=== PATIENT | female | born 1965 | race Caucasian/White ===

== ENCOUNTER 2016-07-11 12:59 | Emergency (ER) | payer OTHER ==
[2016-07-11 13:03] VITALS: BMI 27.6
--- NOTE | 2016-07-11 13:42 | PDOC ---
History of Present Illness <Hu Diaz - Last Filed: 07/11/16 17:58> - General History Source: Patient Exam Limitations: No Limitations <Paul Vega - Last Filed: 07/11/16 20:20> - General Chief Complaint: Chest Pain Stated Complaint: CHEST PAIN Time Seen by Provider: 07/11/16 13:41 - History of Present Illness Initial Comments: 07/11/16 20:18 The patient is a 51 year old female, with a significant past medical history of asthma, diabetes, HTN, hypercholesterolemia, and kidney stones who presents to the emergency department with gradual onset left sided chest pain for about 5 days. She ranks her chest pain a 7/10 in pain intensity, with her pain being worse while lying down in bed. She describes her chest pain as a pressure localized on her left side. She reports the pain has been getting worse most notably today, while in the shower. worse with certain movements She notes the pain is worse at night. she notes occasional sob but denies any worsening of sob/cp when walking around. She denies fever, chills, headache and dizziness. She denies nausea, vomit, diarrhea and constipation. Allergies: Penicillins Past surgical history: None reported Family history: Heart disease (mother) Social history: Nonsmoker. PCP: Dr. José Miguel Singletary (Paul Vega) Past History <uH Diaz - Last Filed: 07/11/16 17:58> - Past Medical History Anemia: No Asthma: Yes Cancer: No Cardiac Disorders: No CVA: No COPD: No CHF: No Dementia: No Diabetes: Yes GI Disorders: No Disorders: No HTN: Yes Hypercholesterolemia: Yes Kidney Stones: Yes (PT HAD SOME PROCEDURES DONE FOR KIDNEY STONE . SHE DOES NOT REMEMBER .) Liver Disease: No Suicide Attempt (Hx): No (X2) Seizures: No Thyroid Disease: No - Surgical History Abdominal Surgery: No Appendectomy: No Cardiac Surgery: No Cholecystectomy: No Lung Surgery: No Neurologic Surgery: No Orthopedic Surgery: No - Immunization History Immunization Up to Date: Yes - Psycho/Social/Smoking Cessation Hx Anxiety: No Suicidal Ideation: No Smoking History: Never smoked Have you smoked in the past 12 months: No Number of Cigarettes Smoked Daily: 0 Information on smoking cessation initiated: No 'Breaking Loose' booklet given: 02/09/15 Hx Alcohol Use: No Drug/Substance Use Hx: No Substance Use Type: None Hx Substance Use Treatment: Yes (Attends [facility] in [place]) <Paul Vega - Last Filed: 07/11/16 20:20> - Past Medical History Allergies/Adverse Reactions: Allergies Allergy/AdvReac Type Severity Reaction Status Date / Time clarithromycin [From Biaxin] Allergy Verified 07/11/16 13:01 Penicillins Allergy Verified 07/11/16 13:01 Home Medications: Ambulatory Orders Albuterol Sulfate Inhaler - [Ventolin Hfa Inhaler -] 1 puff IH PRN 07/11/16 Gabapentin [Neurontin] 600 mg PO BID 07/11/16 Loratadine 10 mg PO DAILY 07/11/16 Metformin HCl 500 mg PO BID 07/11/16 Zolpidem Tartrate [Ambien] 10 mg PO DAILY 07/11/16 Cardiac Specific PMH - Complaint Specific PMHX Pacemaker: No <Paul Vega - Last Filed: 07/11/16 20:20> Review of Systems <Hu iDaz - Last Filed: 07/11/16 17:58> - Review of Systems Able to Perform ROS?: Yes <Paul Vega - Last Filed: 07/11/16 20:20> - Review of Systems Comments:: 07/11/16 20:19 CONSTITUTIONAL: No reported: Fever, Chills, Diaphoresis, Generalized Weakness, Malaise, Loss of Appetite HEENT: No reported: Rhinorrhea, Nasal Congestion, Throat Pain, Throat Swelling, Difficulty Swallowing, Mouth Swelling, Ear Pain, Eye Pain, Visual Changes CARDIOVASCULAR: +chest pain. No reported: Syncope, Palpitations, Irregular Heart Rate, Lightheadedness, Peripheral Edema RESPIRATORY: No reported: Cough, Shortness of Breath, SOB with Exertion, Orthopnea, Wheezing , Stridor, Hemoptysis GASTROINTESTINAL: No reported: Abdominal pain, Abdominal Distension, Nausea, Vomiting, Diarrhea, Constipation, Melena, Hematochezia GENITOURINARY: No reported: Dysuria, Frequency, Urgency, Hesitancy, Flank Pain, Genital Pain MUSCULOSKELETAL: No reported: Myalgia, Arthralgia, Joint Swelling, Back pain, Neck Pain SKIN: No reported: Rash, Itching, Pallor HEMEATOLOGIC/IMMUNOLOGIC: No reported: Easy Bleeding, Easy Bruising, Lymphadenopathy, Frequent infections ENDOCRINE: No reported: Unexplained Weight Gain, Unexplained Weight Loss, Heat Intolerance , Cold Intolerance NEUROLOGIC: No reported: Headache, Focal Weakness, Paresthesias, Vertigo, Lightheadedness, Unsteady Gait, Seizure, Mental Status Changes, Incontinence PSYCHIATRIC: No reported: Anxiety, Depression (Paul Vega) *Physical Exam <Hu Diaz - Last Filed: 07/11/16 17:58> <Paul Vega - Last Filed: 07/11/16 20:20> - Vital Signs Last Vital Signs Temp Pulse Resp BP Pulse Ox 98.7 F 88 18 112/69 98 07/11/16 20:16 07/11/16 20:16 07/11/16 20:16 07/11/16 20:16 07/11/16 20:16 - Physical Exam Comments: 07/11/16 20:19 GENERAL: The patient is awake, alert, and fully oriented, Nontoxic - in no acute distress. HEAD: Normocephalic, atraumatic. EYES: extraocular movements intact, sclera anicteric, conjunctiva clear. ENT: Normal voice, Moist mucous membranes. NECK: Normal range of motion, supple LUNGS/chest: Breath sounds equal, clear to auscultation bilaterally. No wheezes , no rhonchi, no rales. reproducible tenderness to the L anterior chest HEART: Regular rate and rhythm, without murmur, rub or gallop. ABDOMEN: Soft, nontender, normoactive bowel sounds. No guarding, no rebound.No CVA tenderness EXTREMITIES: Normal range of motion, no edema. No clubbing or cyanosis. No cords , erythema, or tenderness. NEUROLOGICAL: No facial asymmetry, Normal speech. PSYCH: Normal mood, normal affect. SKIN: Warm, Dry, normal turgor. (Paul Vega) Heart Score/ECG Review <EmilyHu - Last Filed: 07/11/16 17:58> - History History: Slightly suspicious - Electrocardiogram EKG: Normal - Age Age: 45-65 - Risk Factors Risk Factors Heart Score: Yes Hx Hypercholesterolemia, Yes Hx Hypertension, Yes Hx Diabetes Based on the list above the patient has:: >/=3 risk factors or Hx atherosclerotic disease - Troponin Troponin: </= normal limit - Score Heart Score - Total: 3 <Paul Vega - Last Filed: 07/11/16 20:20> - ECG Impressions Comment:: 07/11/16 14:16 Twelve-lead EKG was performed and reviewed by me. There is normal sinus rhythm with a normal rate. rate of 86 The axis is normal. The intervals are normal. There is normal R wave progression There are no ST or T wave abnormalities. Impression: Normal twelve-lead EKG (Paul Vega) ED Treatment Course - LABORATORY CBC & Chemistry Diagram: 07/11/16 13:52 07/11/16 13:52 <Hu Diaz - Last Filed: 07/11/16 17:58> - LABORATORY CBC & Chemistry Diagram: 07/11/16 13:52 07/11/16 13:52 <GaryPaul - Last Filed: 07/11/16 20:20> - ADDITIONAL ORDERS Additional order review: Laboratory Results 07/11/16 07/11/16 18:21 13:52 Sodium 140 Potassium 3.9 Chloride 102 Carbon Dioxide 28 Anion Gap 10 BUN 16 D Creatinine 1.0 D Creat Clearance w eGFR 58.00 Random Glucose 160 H D Calcium 9.1 Total Bilirubin 0.4 D AST 16 D ALT 15 D Alkaline Phosphatase 94 Creatine Kinase 58 67 Troponin I < 0.02 < 0.02 Total Protein 7.5 Albumin 3.7 Lipase 144 07/11/16 13:52 RBC 4.66 MCV 85.1 MCHC 33.3 RDW 14.4 MPV 6.7 L D Neutrophils % 60.1 Lymphocytes % 26.7 Monocytes % 8.4 Eosinophils % 4.2 Basophils % 0.6 - RADIOLOGY Radiology Studies Ordered: Category Date Time Status CHEST X-RAY PORTABLE* [RAD] Stat Radiology 07/11/16 13:42 Completed - Medications Given in the ED: ED Medications Discontinued Medications Generic Name Dose Route Start Last Admin Trade Name Freq PRN Reason Stop Dose Admin Aspirin 162 mg 07/11/16 13:43 07/11/16 13:56 Asa - PO 07/11/16 13:44 162 mg ONCE ONE Administration Sodium Chloride 1,000 mls @ 1,000 mls/hr 07/11/16 14:09 07/11/16 14:35 Normal Saline - IV 07/11/16 15:08 1,000 mls/hr .Q1H ONE Administration Ketorolac Tromethamine 30 mg 07/11/16 16:40 07/11/16 16:53 Toradol Injection - IVPUSH 07/11/16 16:41 30 mg ONCE ONE Administration Medical Decision Making <Hu Diaz - Last Filed: 07/11/16 17:58> <Paul Vega - Last Filed: 07/11/16 20:20> - Medical Decision Making 07/11/16 14:10 51y F hx of copd, htn, hl, presents with complaint of 1 week of constant chest pain that is pressure like in the left chest associated with mild sob, seems to worsens intermittently with exertion, no associated fever/chills, patterson, diaphoresis, pts exam revieals reproducible mild tenderness to the L chest on palpation. Differential for the patients chest pain includes but not limited to acute coronary syndrome, aortic dissection, pneumonia, pulmonary embolism, AAA, based on the patients clinical syndrome, consider ACS due to risk factors, although her sypmtoms are atypical, lack of exertional symptoms. Do not feel that PE is likely due to lack of sob/cough/leg swelling, pt otherwise low risk for PE. Do not feel that dissection/AAA is is likely due to onset and clincal presentation of symptoms (lack of palpable pulsatile mass, symmetric pulses, lack of associated neurologic sypmtoms) based on reproducible nature, likely costocontdritis will obtain blood work including: cbc, cmp, UA, UHCG ekg, troponin to r/o acs cxr to r/o acute pulmonary disease asa given A portion of this note was documented by scribe services under my direction. I have reviewed the details of the note, within reason, and agree with the documentation with the following case summary and management plan written by me 07/11/16 19:40 pts labs unremarakble trops neg x 2 will dc the pt with pmd fu return precautions were discussed suspect her sypmtoms are secondary to costochondritis due to reproducible sypmtoms return precautions were discussed I discussed the physical exam findings, ancillary test results and final diagnoses with the patient. I answered all of the patient's questions. The patient was satisfied with the care received and felt comfortable with the discharge plan and treatment plan. The patient will call their primary care physician within 24 hours to arrange follow-up and will return to the Emergency Department with any new, persistent or worsening symptoms. (Paul Vega) *DC/Admit/Observation/Transfer <Hu Diaz - Last Filed: 07/11/16 17:58> - Discharge Dispostion Admit: No <Paul Vega - Last Filed: 07/11/16 20:20> Diagnosis at time of Disposition: Costochondral chest pain - Discharge Dispostion Disposition: HOME Condition at time of disposition: Improved - Referrals Referrals: José Miguel Singletary MD [Primary Care Provider] - - Patient Instructions Printed Discharge Instructions: DI for Atypical Chest Pain Additional Instructions: Vuelva al departamento de emergencia inmediatamente con CUALQUIER nuevo, persistente o empeorando los sntomas, incluyendo cualquier dolor en el pecho, dificultad para respirar, o cualquier otra preocupacin. Debe llamar y seguir con parikh mdico maana para antoni evaluacin ms detallada de kin sntomas. Los resultados fueron discutidos con usted. Por favor, asegrese de que parikh mdico revise los resultados de parikh evaluacin de emergencia. Si usted tuvo alguna radiografa anabel parikh visita, fue ledo preliminarmente por m mismo, un radilogo lo revisar y si hay algn hallazgo adicional le llamaremos. Return to the emergency department immediately with ANY new, persistent or worsening symptoms including any chest pain, shortness of breath, or any other concerns. You MUST call and follow up with your doctor tomorrow for further evaluation of your symptoms. Results were discussed with you. Please make sure your doctor reviews the results of your emergency evaluation. If you had any xrays during your visit, it was read preliminarily by myself, a Radiologist will review it and if there are any additional findings we will call you. Print Language: NORTHERN IRISH - Attestations Scribe Attestion: 07/11/16 17:59 Documentation prepared by Hu Diaz, acting as general medical practitioner for Paul Vega MD. (Hu iDaz)
[2016-07-11] MEDS ORDERED: ASPIRIN 81 MG CHEWABLE TABLETS PO ONE (13:43)
[2016-07-11] MEDS ORDERED: ASPIRIN 81 MG CHEWABLE TABLETS ONE (13:54)
[2016-07-11 14:01] LABS: BASOPHIL 0.6 % (0-2.0); EOSINOPHIL 4.2 % (0-4.5); MCH 28.3 pg (25.7-33.7); MCHC 33.3 g/dl (32.0-36.0); MEAN CELL VOLUME 85.1 fl (80-96); MEAN PLT VOLUME 6.7 fl (7.5-11.1); NEUTROPHILS 60.1 % (42.8-82.8); PLATELET COUNT 162 K/MM3 (134-434); RDW 14.4 % (11.6-15.6)
[2016-07-11] MEDS ORDERED: SODIUM CHLORIDE 1,000 ML IV ONE (14:09)
[2016-07-11 14:45] LABS: ALBUMIN 3.7 g/dl (3.4-5.0); ANION GAP 10 (8-16); CALCIUM 9.1 mg/dL (8.5-10.1); CO2 28 mmol/L (21-32); GLUCOSE,RANDOM 160 mg/dL (74-106); SGOT/AST 16 U/L (15-37); SGPT/ALT 15 U/L (12-78)
[2016-07-11 14:49] LABS: ALK PHOS 94 U/L (45-117); BILIRUBIN,TOTAL 0.4 mg/dL (0.2-1.0); TOT PROT 7.5 g/dl (6.4-8.2); TROPONIN I < 0.02 ng/ml (0.00-0.05)
--- NOTE | 2016-07-11 15:29 | EKG ---
Test Reason : Blood Pressure : / mmHG Vent. Rate : 086 BPM Atrial Rate : 086 BPM P-R Int : 166 ms QRS Dur : 080 ms QT Int : 358 ms P-R-T Axes : 044 013 037 degrees QTc Int : 428 ms NORMAL SINUS RHYTHM POSSIBLE LEFT ATRIAL ENLARGEMENT RSR' OR QR PATTERN IN V1 SUGGESTS RIGHT VENTRICULAR CONDUCTION DELAY WHEN COMPARED WITH ECG OF 21-JAN-2014 17:50, NO SIGNIFICANT CHANGE WAS FOUND Confirmed by MARK VALLEJO, ELIZA ([id number]) on 07/11/2016 3:28:53 PM Referred By: Confirmed By:ELIZA FLORES MD
[2016-07-11] MEDS ORDERED: KETOROLAC TROMETHAMINE 30 MG/1 ML VIAL IVPUSH ONE (16:40)
[2016-07-11] MEDS ORDERED: KETOROLAC TROMETHAMINE 30 MG/1 ML VIAL ONE (16:42)
[2016-07-11 18:21] VITALS: TEMP 98.7
[2016-07-11 18:59] LABS: TROPONIN I < 0.02 ng/ml (0.00-0.05)
[2016-07-11 20:17] VITALS: BP 112/69; PULSE 88
== END 2016-07-11 20:17 | disposition home or self-care (01) ==
LOC: JER 12:59
PROC: 3E0337Z Introduction of Electrolytic and Water Balance Substance into Peripheral Vein, Percutaneous Approach (ICD-10-PCS; principal; 2016-07-11)
PROC: 3E0333Z Introduction of Anti-inflammatory into Peripheral Vein, Percutaneous Approach (ICD-10-PCS; 2016-07-11)
DX: M94.0 Chondrocostal junction syndrome [Tietze] (principal); I10 Essential (primary) hypertension; E11.9 Type 2 diabetes mellitus without complications; Z79.84 Long term (current) use of oral hypoglycemic drugs; E78.00 Pure hypercholesterolemia, unspecified; J45.909 Unspecified asthma, uncomplicated
CPT/HCPCS: 36415; 71010-TC; 80053; 82550; 83690; 84484; 85025; 93005; 93010; 96361; 96374; 99285-25

== ENCOUNTER 2017-07-17 20:19 | Emergency (ER) | payer OTHER ==
--- NOTE | 2017-07-17 20:28 | PDOC ---
Rapid Medical Evaluation Time Seen by Provider: 07/17/17 20:22 Medical Evaluation: Allergies Allergy/AdvReac Type Severity Reaction Status Date / Time clarithromycin [From Biaxin] Allergy Verified 07/11/16 13:01 Penicillins Allergy Verified 07/11/16 13:01 07/17/17 20:22 I have performed a brief in-person evaluation of this patient. The patient presents with a chief complaint of: chest pain radiating to left upper back Pertinent physical exam findings: Lungs CTAB. RRR, S1S2 present no m/r/g. I have ordered the following: ekg, labs, cxr, asa The patient will proceed to the ED for further evaluation. Discharge Disposition - Diagnosis Chest pain - Referrals - Patient Instructions - Post Discharge Activity
[2017-07-17] MEDS ORDERED: ASPIRIN 81 MG CHEWABLE TABLETS PO ONE (20:29)
[2017-07-17 20:30] VITALS: BP 138/68; PULSE 80; TEMP 98.1; BMI 27.9
[2017-07-17] MEDS ORDERED: ASPIRIN 81 MG CHEWABLE TABLETS ONE (20:43)
[2017-07-17 20:50] LABS: BASO % 0.5 % (0-2.0); EOS % 4.8 % (0-4.5); HEMATOCRIT 38.8 % (32.4-45.2); HEMOGLOBIN 12.5 GM/dL (10.7-15.3); LYMPH % 32.6 % (8-40); MCH 27.6 pg (25.7-33.7); MCHC 32.2 g/dl (32.0-36.0); MEAN CELL VOLUME 85.6 fl (80-96); MEAN PLT VOLUME 6.9 fl (7.5-11.1); MONO % 9.9 % (3.8-10.2); NEUT % 52.2 % (42.8-82.8); PLATELET COUNT 152 K/MM3 (134-434); RBC 4.54 M/mm3 (3.60-5.2); RDW 14.3 % (11.6-15.6); WHITE BLOOD COUNT 5.4 K/mm3 (4.0-10.0)
--- NOTE | 2017-07-17 21:13 | PDOC ---
History of Present Illness - General History Source: Patient Exam Limitations: No Limitations <Delta Pineda - Last Filed: 07/17/17 21:22> <Maggy Benavides - Last Filed: 07/18/17 02:48> - General Chief Complaint: Pain Stated Complaint: CHEST PAIN/ BACK PAIN Time Seen by Provider: 07/17/17 20:22 - History of Present Illness Initial Comments: 07/17/17 21:13 The patient is a 52 year old female, with a significant past medical history of hypercholesterolemia, hypertension, anxiety, DM, asthma, GERD, who presents to the emergency department with, pleuritic left sided chest pain, for approx. three days. The patient reports the left sided chest pain first begins as palpitations that then becomes a constant sharp pain that radiates to the left scapula. The patient reports the left sided chest pain does not radiate to the neck or jaw but reports tingling in the left arm. She reports the left sided chest pain is made worse while lying down. She denies recent fevers, chills, headache or dizziness. She denies recent nausea, vomit, diarrhea or constipation. She denies recent dysuria, frequency, urgency or hematuria. She denies recent shortness of breath. She denies recent diaphoresis, swelling or calf tenderness. Allergies: Clarithromycin, Penicillins Social History: Non-Smoker PCP: Dr. José Miguel Singletary (Delta Pineda) Past History <Delta Pineda - Last Filed: 07/17/17 21:22> - Past Medical History Anemia: No Asthma: Yes Cancer: No Cardiac Disorders: No CVA: No COPD: No CHF: No Dementia: No Diabetes: Yes GI Disorders: No Disorders: No HTN: Yes Hypercholesterolemia: Yes Kidney Stones: Yes (PT HAD SOME PROCEDURES DONE FOR KIDNEY STONE . SHE DOES NOT REMEMBER .) Liver Disease: No Seizures: No Thyroid Disease: No - Surgical History Abdominal Surgery: No Appendectomy: No Cardiac Surgery: No Cholecystectomy: No Lung Surgery: No Neurologic Surgery: No Orthopedic Surgery: No - Immunization History Immunization Up to Date: Yes - Suicide/Smoking/Psychosocial Hx Smoking History: Never smoked Have you smoked in the past 12 months: No Number of Cigarettes Smoked Daily: 0 Information on smoking cessation initiated: No 'Breaking Loose' booklet given: 07/06/14 Hx Alcohol Use: No Drug/Substance Use Hx: No Substance Use Type: None Hx Substance Use Treatment: Yes (Attends [facility] in [place]) <Maggy Benavides - Last Filed: 07/18/17 02:48> - Past Medical History Allergies/Adverse Reactions: Allergies Allergy/AdvReac Type Severity Reaction Status Date / Time clarithromycin [From Biaxin] Allergy Verified 07/17/17 20:27 Penicillins Allergy Verified 07/17/17 20:27 Home Medications: Ambulatory Orders Albuterol Sulfate Inhaler - [Ventolin Hfa Inhaler -] 1 puff IH PRN 07/11/16 Gabapentin [Neurontin] 600 mg PO BID 07/11/16 Loratadine 10 mg PO DAILY 07/11/16 Metformin HCl 500 mg PO BID 07/11/16 Zolpidem Tartrate [Ambien] 10 mg PO DAILY 07/11/16 Atorvastatin Ca [Lipitor] 20 mg PO HS 07/17/17 Losartan Potassium 0 mg PO DAILY 07/17/17 Montelukast Sodium [Singulair] 10 mg PO DAILY 07/17/17 Cardiac Specific PMH - Complaint Specific PMHX Pacemaker: No <Maggy Benavides - Last Filed: 07/18/17 02:48> Review of Systems <Delta Pineda - Last Filed: 07/17/17 21:22> <Maggy Benavides - Last Filed: 07/18/17 02:48> - Review of Systems Comments:: 07/17/17 21:18 CONSTITUTIONAL: Absent: fever, chills, diaphoresis, generalized weakness, malaise, loss of appetite HEENT: Absent: rhinorrhea, nasal congestion, throat pain, throat swelling, difficulty swallowing, mouth swelling, ear pain, eye pain, visual Changes CARDIOVASCULAR: Present: +Chest pain. +Palpitations. Absent: syncope, irregular heart rate, lightheadedness, peripheral edema RESPIRATORY: Absent: cough, shortness of breath, dyspnea with exertion, orthopnea, wheezing, stridor, hemoptysis GASTROINTESTINAL: Absent: abdominal pain, abdominal distension, nausea, vomiting, diarrhea, constipation, melena, hematochezia GENITOURINARY: Absent: dysuria, frequency, urgency, hesitancy, hematuria, flank pain, genital pain MUSCULOSKELETAL: Present: +Left upper back pain. Absent: arthralgia, joint swelling SKIN: Absent: rash, itching, pallor HEMATOLOGIC/IMMUNOLOGIC: Absent: easy bleeding, easy bruising, lymphadenopathy, frequent infections ENDOCRINE: Absent: unexplained weight gain, unexplained weight loss, heat intolerance, cold intolerance NEUROLOGIC: Absent: headache, focal weakness, dizziness, unsteady gait, seizure, mental status changes, bladder or bowel incontinence PSYCHIATRIC: Absent: anxiety, depression, suicidal or homicidal ideation, hallucinations. (Delta Pineda) *Physical Exam <Dleta Pineda - Last Filed: 07/17/17 21:22> <Maggy Benavides - Last Filed: 07/18/17 02:48> - Vital Signs Last Vital Signs Temp Pulse Resp BP Pulse Ox 98.1 F 80 20 138/68 99 07/17/17 20:27 07/17/17 20:27 07/17/17 20:27 07/17/17 20:27 07/17/17 20:27 - Physical Exam Comments: 07/17/17 21:18 GENERAL: Awake and alert. No acute distress. HEENT: Normocephalic, atraumatic. PERRLA, EOMI. No conjunctival pallor. Sclera are non- icteric. Moist mucous membranes. Oropharynx is clear. NECK: Supple. Full ROM. No JVD. Carotid pulses 2+ and symmetric, without bruits. No thyromegaly. No lymphadenopathy. CARDIOVASCULAR: Regular rate and rhythm. No murmurs, rubs, or gallops. Distal pulses are 2+ and symmetric. PULMONARY: No evidence of respiratory distress. Lungs clear to auscultation bilaterally. No wheezing, rales or rhonchi. ABDOMINAL: Soft. Non-tender. Non-distended. No rebound or guarding. No organomegaly. Normoactive bowel sounds. MUSCULOSKELETAL Normal range of motion at all joints. No bony deformities or tenderness. No CVA tenderness. EXTREMITIES: No cyanosis. No clubbing. No edema. No calf tenderness. SKIN: Warm and dry. Normal capillary refill. No rashes. No jaundice. NEUROLOGICAL: Alert, awake, appropriate. Cranial nerves 2-12 intact. No deficits to light touch and temperature in face, upper extremities and lower extremities. No motor deficits in the in face, upper extremities and lower extremities. Normoreflexic in the upper and lower extremities. Normal speech. Toes are down- going bilaterally. Gait is normal without ataxia. PSYCHIATRIC: Cooperative. Good eye contact. Appropriate mood and affect. (Delta Pineda) ED Treatment Course - LABORATORY CBC & Chemistry Diagram: 07/17/17 20:46 07/17/17 20:46 <Delta Pineda - Last Filed: 07/17/17 21:22> - LABORATORY CBC & Chemistry Diagram: 07/17/17 20:46 07/17/17 20:46 <Maggy Benavides - Last Filed: 07/18/17 02:48> - ADDITIONAL ORDERS Additional order review: Laboratory Results 07/18/17 07/17/17 07/17/17 01:20 21:00 20:46 PT with INR INR D-Dimer 264 Sodium 139 Potassium 4.2 Chloride 104 Carbon Dioxide 28 Anion Gap 7 L BUN 10 Creatinine 1.0 Creat Clearance w eGFR 57.78 Random Glucose 145 H Calcium 8.2 L Magnesium 1.9 Total Bilirubin 0.3 D AST 30 ALT 21 Alkaline Phosphatase 105 Creatine Kinase 89 103 Troponin I < 0.02 < 0.02 Total Protein 6.9 Albumin 3.6 07/17/17 20:46 PT with INR 10.70 INR 0.95 D-Dimer Sodium Potassium Chloride Carbon Dioxide Anion Gap BUN Creatinine Creat Clearance w eGFR Random Glucose Calcium Magnesium Total Bilirubin AST ALT Alkaline Phosphatase Creatine Kinase Troponin I Total Protein Albumin 07/17/17 20:46 RBC 4.54 MCV 85.6 MCHC 32.2 RDW 14.3 MPV 6.9 L Neutrophils % 52.2 Lymphocytes % 32.6 D Monocytes % 9.9 Eosinophils % 4.8 H Basophils % 0.5 - Medications Given in the ED: ED Medications Discontinued Medications Generic Name Dose Route Start Last Admin Trade Name Freq PRN Reason Stop Dose Admin Acetaminophen 975 mg 07/17/17 22:21 07/17/17 22:26 Tylenol - PO 07/17/17 22:22 975 mg ONCE ONE Administration Aspirin 162 mg 07/17/17 20:29 07/17/17 20:46 Asa - PO 07/17/17 20:30 162 mg ONCE ONE Administration Medical Decision Making <Delta Pineda - Last Filed: 07/17/17 21:22> <Maggy Benavides - Last Filed: 07/18/17 02:48> - Medical Decision Making 07/18/17 02:46 52-year-old female presented with 3 days of upper left back pain that radiated to her left scapula and she complained of pleuritic chest pain. On arrival she was afebrile, normotensive, and pulse ox is greater than 95% on room air. EKG is normal sinus rhythm with no evidence of acute ischemia. Chest x-ray showed a normal mediastinum, normal cardiac silhouette, no infiltrates, no effusions, no pneumothorax. D-dimer was negative, and was less than 250. CBC unremarkable. Chemistries showed a slightly elevated glucose, but the patient has a history of [id number] diabetes. Patient symptoms improved with pain medication. Patient had 2 negative cardiac enzymes and was discharged home to follow-up with Dr. José Miguel Singletary primary care physician (Maggy Benavides) *DC/Admit/Observation/Transfer <Delta Pineda - Last Filed: 07/17/17 21:22> <Maggy Benavides - Last Filed: 07/18/17 02:48> Diagnosis at time of Disposition: Chest pain Qualifiers: Chest pain type: chest pain on breathing Qualified Code(s): R07.1 - Chest pain on breathing - Discharge Dispostion Disposition: HOME Condition at time of disposition: Stable - Referrals Referrals: José Miguel Singletary MD [Primary Care Provider] - - Patient Instructions Printed Discharge Instructions: DI for Chest Pain Additional Instructions: please followup with Dr Singletary - Attestations Scribe Attestion: 07/17/17 21:18 Documentation prepared by Delta Pineda, acting as medical insurance collector for Maggy Benavides MD. (Delta Pineda)
[2017-07-17 21:17] LABS: INR 0.95 (0.82-1.09); PROTHROMBIN TIME (PATIENT) 10.7 SEC (9.98-11.88)
[2017-07-17 21:27] LABS: ALBUMIN 3.6 g/dl (3.4-5.0); ANION GAP 7 (8-16); BILIRUBIN,TOTAL 0.3 mg/dL (0.2-1.0); BLOOD UREA NITROGEN 10 mg/dL (7-18); CALCIUM 8.2 mg/dL (8.5-10.1); CHLORIDE 104 mmol/L (98-107); CO2 28 mmol/L (21-32); GLUCOSE,RANDOM 145 mg/dL (74-106); MAGNESIUM 1.9 mg/dL (1.8-2.4); POTASSIUM 4.2 mmol/L (3.5-5.1); SGOT/AST 30 U/L (15-37); SGPT/ALT 21 U/L (12-78); SODIUM 139 mmol/L (136-145)
[2017-07-17 21:30] LABS: ALK PHOS 105 U/L (45-117); TOT PROT 6.9 g/dl (6.4-8.2)
[2017-07-17] MEDS ORDERED: ACETAMINOPHEN 500 MG TABLET (FP) PO ONE (22:21)
[2017-07-17] MEDS ORDERED: ACETAMINOPHEN 325 MG TABLET (FP) ONE (22:24)
--- NOTE | 2017-07-18 17:07 | EKG ---
Test Reason : Blood Pressure : / mmHG Vent. Rate : 070 BPM Atrial Rate : 070 BPM P-R Int : 170 ms QRS Dur : 080 ms QT Int : 380 ms P-R-T Axes : 060 034 056 degrees QTc Int : 410 ms NORMAL SINUS RHYTHM NORMAL ECG WHEN COMPARED WITH ECG OF 11-JUL-2016 13:07, NO SIGNIFICANT CHANGE WAS FOUND Confirmed by DIPAK NETTLES MD ([id number]) on 07/18/2017 5:06:47 PM Referred By: Confirmed By:DIPAK NETTLES MD
== END 2017-07-18 02:25 | disposition home or self-care (01) ==
LOC: JER 20:19
DX: R07.89 Other chest pain (principal); I10 Essential (primary) hypertension; E78.00 Pure hypercholesterolemia, unspecified; E11.9 Type 2 diabetes mellitus without complications; Z79.84 Long term (current) use of oral hypoglycemic drugs; F41.9 Anxiety disorder, unspecified; J45.909 Unspecified asthma, uncomplicated; K21.9 Gastro-esophageal reflux disease without esophagitis
CPT/HCPCS: 36415; 71046-TC-FY; 80053; 82550; 83735; 84484; 85025; 85379; 85610; 93005; 93010; 99285-25

== ENCOUNTER 2017-12-23 15:41 | Emergency (ER) | payer OTHER ==
[2017-12-23 15:58] VITALS: BP 124/71; PULSE 101; TEMP 97.9; BMI 27.1
--- NOTE | 2017-12-23 16:26 | PDOC ---
History of Present Illness - General Chief Complaint: Injury Stated Complaint: ARM PAIN Time Seen by Provider: 12/23/17 16:19 History Source: Patient Exam Limitations: No Limitations - History of Present Illness Initial Comments: CHIEF COMPLAINT: 52 y/o female c/o left elbow and right thumb pain s/p slip and fall yesterday. HISTORY OF PRESENT ILLNESS: Patient denies head trauma, LOC, numbness/ tingling. She denies head trauma and LOC. Vital signs on arrival are notable for pulse of 101. REVIEW OF SYSTEMS: GENERAL/CONSTITUTIONAL: No fever/chills. No weakness. No weight change. MUSCULOSKELETAL: +left elbow pain. +right thumb pain. No neck or back pain. SKIN: No rash or easy bruising. NEUROLOGIC: No headache, vertigo, loss of consciousness, or loss of sensation. PHYSICAL EXAM: VITAL_SIGNS: within normal limits GENERAL_APPEARANCE: alert, cooperative, no obvious discomfort. MENTAL_STATUS: speech clear, oriented X 3, responds appropriately to questions. NEURO: motor intact and sensory intact in injured extremity. EXTREMITIES: Pain with palpation of left elbow and with supination of left forearm and extension of left elbow. Pain with palpation of right thenar prominence. No obvious deformities to left elbow or right hand/wrist. No edema , erythema, warmth or streaking. SKIN: warm, dry, good color. Past History - Past Medical History Allergies/Adverse Reactions: Allergies Allergy/AdvReac Type Severity Reaction Status Date / Time clarithromycin [From Biaxin] Allergy Verified 12/23/17 15:58 Penicillins Allergy Verified 12/23/17 15:58 Home Medications: Ambulatory Orders Albuterol Sulfate Inhaler - [Ventolin Hfa Inhaler -] 1 puff IH PRN 07/11/16 Gabapentin [Neurontin] 600 mg PO BID 07/11/16 Loratadine 10 mg PO DAILY 07/11/16 Zolpidem Tartrate [Ambien] 10 mg PO DAILY 07/11/16 metFORMIN HCL [Metformin HCl] 500 mg PO BID 07/11/16 Atorvastatin Ca [Lipitor] 20 mg PO HS 07/17/17 Losartan Potassium 0 mg PO DAILY 07/17/17 Montelukast Sodium [Singulair] 10 mg PO DAILY 07/17/17 Anemia: No Asthma: Yes Cancer: No Cardiac Disorders: No CVA: No COPD: No CHF: No Dementia: No Diabetes: Yes GI Disorders: No Disorders: No HTN: Yes Hypercholesterolemia: Yes Kidney Stones: Yes (PT HAD SOME PROCEDURES DONE FOR KIDNEY STONE . SHE DOES NOT REMEMBER .) Liver Disease: No Seizures: No Thyroid Disease: No - Surgical History Abdominal Surgery: No Appendectomy: No Cardiac Surgery: No Cholecystectomy: No Lung Surgery: No Neurologic Surgery: No Orthopedic Surgery: No - Immunization History Immunization Up to Date: Yes - Suicide/Smoking/Psychosocial Hx Smoking History: Never smoked Have you smoked in the past 12 months: No Number of Cigarettes Smoked Daily: 0 'Breaking Loose' booklet given: 07/06/14 Hx Alcohol Use: No Drug/Substance Use Hx: No Substance Use Type: None Hx Substance Use Treatment: Yes (Attends [facility] in [place]) *Physical Exam - Vital Signs Last Vital Signs Temp Pulse Resp BP Pulse Ox 97.9 F 101 H 20 124/71 99 12/23/17 15:56 12/23/17 15:56 12/23/17 15:56 12/23/17 15:56 12/23/17 15:56 Medical Decision Making - Medical Decision Making A/P: 52 y/o female with left elbow and right thumb pain s/p slip and fall yesterday. Plan is as follows: 1. Left elbow xray 2. Right hand xray Left elbow xray IMPRESSION: (wet read) no fracture right hand xray IMPRESSION: (wet read) no fracture gave patient the results and a sling for her elbow suggested rice instructions, motrin for pain and f/u with dr. Kim if no improvement within 2 weeks. The patient verbalizes understanding of all instructions, has no further questions and is awaiting discharge. *DC/Admit/Observation/Transfer Diagnosis at time of Disposition: Elbow pain, left, Hand pain, right - Discharge Dispostion Disposition: HOME Condition at time of disposition: Good - Referrals Referrals: José Miguel Singletary MD [Primary Care Provider] - Abhay Kim MD [Staff Physician] - 1 week - Patient Instructions Printed Discharge Instructions: DI for Elbow Pain, DI for Hand Pain, How To Perform RICE (Rest, Ice, Compress, Elevate) Additional Instructions: Discharge Instructions: -The xrays of your elbow and hand were normal -Use the sling for comfort -Follow RICE instructions -Take Tylenol or motrin for pain if needed -Follow up with Dr. Kim in 1 week if no improvement in symptoms - Post Discharge Activity Forms/Work/School Notes: Back to Work
== END 2017-12-23 18:00 | disposition home or self-care (01) ==
LOC: JERFT 15:41
DX: M25.522 Pain in left elbow (principal); M79.644 Pain in right finger(s); W01.0XXA Fall on same level from slipping, tripping and stumbling without subsequent striking against object, initial encounter; Y93.89 Activity, other specified; Y92.9 Unspecified place or not applicable; Y99.9 Unspecified external cause status; I10 Essential (primary) hypertension; E78.00 Pure hypercholesterolemia, unspecified; E11.9 Type 2 diabetes mellitus without complications; Z79.84 Long term (current) use of oral hypoglycemic drugs; Z87.442 Personal history of urinary calculi
CPT/HCPCS: 73070-TC-LT-FY; 73130-TC-RT-FY; 99281-25

== ENCOUNTER 2019-12-23 16:28 | Emergency (ER) | payer OTHER ==
--- NOTE | 2019-12-23 16:34 | PDOC ---
Rapid Medical Evaluation Time Seen by Provider: 12/23/19 16:31 Medical Evaluation: Allergies Allergy/AdvReac Type Severity Reaction Status Date / Time clarithromycin [From Biaxin] Allergy Verified 11/12/19 16:20 Penicillins Allergy Verified 11/12/19 16:20 12/23/19 16:31 Pt presents to the ER with a L 2nd digit fx. Pt states she had an x-ray already, but needs it to be reduced/splinted? Exam: obvious deformity to the PIP Orders: x-ray Pt to proceed to the ER for further evaluation Discharge Disposition - Diagnosis Hand pain, left - Referrals - Patient Instructions - Post Discharge Activity
[2019-12-23 16:40] VITALS: BP 111/73; PULSE 86; TEMP 99; BMI 28.3
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
== END 2019-12-23 17:44 | disposition home or self-care (01) ==
LOC: JERFT 16:28
DX: M79.642 Pain in left hand (principal)
CPT/HCPCS: 73130-TC-LT-FY; 99283-25

== ENCOUNTER 2021-04-19 09:37 | Emergency (ER) | payer OTHER ==
[2021-04-19 09:52] VITALS: TEMP 98.9; BMI 26.4
[2021-04-19] MEDS ORDERED: SODIUM CHLORIDE 1,000 ML IV STA (10:52)
[2021-04-19] MEDS ORDERED: METOCLOPRAMIDE HCL INJECTION 10 MG/2 ML VIAL IVPUSH ONE (10:55)
[2021-04-19] MEDS ORDERED: METOCLOPRAMIDE HCL INJECTION 10 MG/2 ML VIAL ONE (11:29)
[2021-04-19 11:47] LABS: HEMATOCRIT 35.8 % (32.4-45.2); HEMOGLOBIN 11.9 GM/dL (10.7-15.3); MCH 29.1 pg (25.7-33.7); MCHC 33.2 g/dl (32.0-36.0); MEAN CELL VOLUME 87.4 fl (80-96); MEAN PLT VOLUME 7.8 fl (7.5-11.1); PLATELET COUNT 196 10^3/uL (134-434); RDW 14.5 % (11.6-15.6); WHITE BLOOD COUNT 8.5 K/mm3 (4.0-10.0)
[2021-04-19 11:49] LABS: EPI CELLS >36 /uL (0-25.1); HYALINE CASTS 5 /uL (0-3.1); URINE APPEARANCE CLOUDY; URINE BACTERIA >9,000 /uL (0-1359); URINE BILIRUBIN NEGATIVE (NEGATIVE); URINE COLOR DK YELLOW; URINE GLUCOSE (UA) NEGATIVE (NEGATIVE); URINE KETONE TRACE (NEGATIVE); URINE LEUK ESTERASE 2+ (NEGATIVE); URINE NITRITE POSITIVE (NEGATIVE); URINE PROTEIN 1+ (NEGATIVE); URINE RBC 78 /uL (0-23.9); URINE WBC 1536 /uL (0-25.8)
[2021-04-19 12:51] LABS: ANISOCYTOSIS 0; MACROCYTOSIS 0; PLATELET ESTIMATE NORMAL
[2021-04-19 13:13] LABS: ALBUMIN 2.8 g/dl (3.4-5.0); ALK PHOS 91 U/L (45-117); ANION GAP 6 MMOL/L (8-16); BILIRUBIN,TOTAL 0.5 mg/dL (0.2-1); BLOOD UREA NITROGEN 12.6 mg/dL (7-18); CALCIUM 8.5 mg/dL (8.5-10.1); CHLORIDE 101 mmol/L (98-107); CO2 30 mmol/L (21-32); CREATININE 0.9 mg/dL (0.55-1.3); GLUCOSE,RANDOM 117 mg/dL (74-106); SGOT/AST 16 U/L (15-37); SGPT/ALT 15 U/L (13-61); SODIUM 137 mmol/L (136-145); TOT PROT 7.4 g/dl (6.4-8.2)
[2021-04-19 14:29] VITALS: BP 110/78; PULSE 82
== END 2021-04-19 14:47 | disposition home or self-care (01) ==
LOC: JER 09:37
PROC: 3E03329 Introduction of Other Anti-infective into Peripheral Vein, Percutaneous Approach (ICD-10-PCS; principal; 2021-04-19)
PROC: 3E033NZ Introduction of Analgesics, Hypnotics, Sedatives into Peripheral Vein, Percutaneous Approach (ICD-10-PCS; 2021-04-19)
PROC: 3E0337Z Introduction of Electrolytic and Water Balance Substance into Peripheral Vein, Percutaneous Approach (ICD-10-PCS; 2021-04-19)
DX: N12 Tubulo-interstitial nephritis, not specified as acute or chronic (principal); N20.0 Calculus of kidney
CPT/HCPCS: 36415; 71046-TC-FY; 74176-TC; 80053; 81003; 84484; 85025; 87086; 87186; 93005; 93010; 96361; 96365; 96375; 99285-25

== ENCOUNTER 2021-11-22 11:22 | Emergency (ER) | payer OTHER ==
[2021-11-22 11:57] VITALS: BP 132/90; PULSE 97; TEMP 98.4; BMI 28.1
[2021-11-22] MEDS ORDERED: ACETAMINOPHEN 500 MG TABLET (FP) PO ONE (12:48)
[2021-11-22] MEDS ORDERED: ACETAMINOPHEN 500 MG TABLET (FP) ONE (13:50)
== END 2021-11-22 15:03 | disposition home or self-care (01) ==
LOC: JERFT 11:22
DX: S00.93XA Contusion of unspecified part of head, initial encounter (principal); M79.672 Pain in left foot; S80.212A Abrasion, left knee, initial encounter; M25.562 Pain in left knee; Y04.0XXA Assault by unarmed brawl or fight, initial encounter
CPT/HCPCS: 70450-TC; 70486-TC; 73562-TC-LT-FY; 73610-TC-LT-FY; 73630-TC-LT; 99285-25

== ENCOUNTER 2023-03-19 14:05 | Emergency (ER) | payer OTHER ==
[2023-03-19 14:30] VITALS: BP 116/78; PULSE 80; RESP 18; TEMP 98.3; BMI 26.4
[2023-03-19] MEDS ORDERED: ALBUTEROL SO4 2.5/IPRATROPIUM 0.5 INH SOL 3 ML VIAL.NEB. NEB ONE ×2 (17:03→17:09)
[2023-03-19] MEDS ORDERED: METOCLOPRAMIDE HCL INJECTION 10 MG/2 ML VIAL ONE (19:45)
== END 2023-03-19 17:53 | disposition home or self-care (01) ==
LOC: JERFT 14:05
PROC: 3E0F7GC Introduction of Other Therapeutic Substance into Respiratory Tract, Via Natural or Artificial Opening (ICD-10-PCS; principal; 2023-03-19)
DX: R05.9 Cough, unspecified (principal); J45.909 Unspecified asthma, uncomplicated; R06.02 Shortness of breath; R50.9 Fever, unspecified; J02.9 Acute pharyngitis, unspecified; R09.81 Nasal congestion; R51.9 Headache, unspecified; M79.10 Myalgia, unspecified site; Z20.822 Contact with and (suspected) exposure to COVID-19
CPT/HCPCS: 0241U-QW; 71046-TC-FY; 99284-25